=== PATIENT | female | born 1985 ===

== ENCOUNTER 2024-03-30 10:16 | Emergency (ER) | payer SELFPAY ==
[2024-03-30 10:28] VITALS: PULSE 80; RESP 28; O2SAT 99; BMI 27.4
--- NOTE | 2024-03-30 10:30 | PC.NURSE ---
patient was brought in by ems, from detention on a hold fro [facility] disab, patient walked away from ambulance bay without any provider evaluation, social professionals notified police called.
--- NOTE | 2024-03-30 10:34 | PC.SS ---
ASW was informed by charge nurse, that patient was brought in by ambulance on a 5150 hold. During arrival, patient eloped from the hospital. [employer] was contacted to make aware of the situation. [facility] Jolie Davies was also notified.
--- NOTE | 2024-04-04 11:25 | PC.CC ---
Pts chart accessed to update crisis log and stats.
== END 2024-03-30 10:39 | disposition left against medical advice (07) ==
LOC: SERX 10:22
PROVIDERS: Emergency Provider Emergency Medicine
DX: Z53.21 Procedure and treatment not carried out due to patient leaving prior to being seen by health care provider (principal)